=== PATIENT | female | born 1970 | race Hispanic/Latino ===

== ENCOUNTER 2017-05-13 09:05 | Emergency (ER) | payer MEDICARE ==
[2017-05-13 09:47] VITALS: BP 137/69
--- NOTE | 2017-05-13 12:09 | Emergency Department Report ---
ED Back Pain/Injury HPI - General Chief Complaint: Back Pain/Injury Stated Complaint: RIGHT SIDE BACK PAIN Time Seen by Provider: 05/13/17 11:57 Source: patient Limitations: No Limitations - History of Present Illness Initial Comments: Pt reports R flank/low back pain, no injury. Sx present x 3 days. States some mild intermittent dysuria, otherwise no symptoms. LMP today. Denies fevers, nausea, vomiting, abdominal pain. MD Complaint: back pain -: Gradual, days(s) (3) Similar Symptoms Previously: No Place: home Radiation: none Severity: mild Severity scale (0 -10): 2 Quality: aching Consistency: constant Improves With: none Worsens With: none Associated Symptoms: denies other symptoms - Related Data Previous Rx's Medication Instructions Recorded Last Taken Type Fluconazole [Diflucan] 150 mg PO PRN #2 tablet 05/13/17 Unknown Rx Ketorolac [Toradol] 10 mg PO Q8HR PRN #15 tablet 05/13/17 Unknown Rx Levofloxacin [Levaquin TAB] 500 mg PO QDAY #10 tablet 05/13/17 Unknown Rx Tamsulosin [Flomax] 0.4 mg PO QDAY #15 cap 05/13/17 Unknown Rx Allergies Allergy/AdvReac Type Severity Reaction Status Date / Time ampicillin Allergy Rash Verified 05/13/17 09:38 aspirin Allergy Rash Verified 05/13/17 09:38 cephalexin [From Keflex] Allergy Rash Verified 05/13/17 09:38 ciprofloxacin [From Cipro] Allergy Rash Verified 05/13/17 09:38 clindamycin [From Cleocin] Allergy Rash Verified 05/13/17 09:38 codeine Allergy Rash Verified 05/13/17 09:38 diflunisal [From Dolobid] Allergy Rash Verified 05/13/17 09:38 diphenhydramine Allergy Rash Verified 05/13/17 09:38 [From Benadryl] doxycycline Allergy Rash Verified 05/13/17 09:38 erythromycin base Allergy Rash Verified 05/13/17 09:38 [From Ilosone] ibuprofen [From Motrin] Allergy Rash Verified 05/13/17 09:38 metronidazole Allergy Rash Verified 05/13/17 09:38 Sulfa (Sulfonamide Allergy Rash Verified 05/13/17 09:38 Antibiotics) EES 400 Allergy Unknown Uncoded 05/13/17 09:38 rondomycin Allergy Rash Uncoded 05/13/17 09:38 Tuss ornade Allergy Rash Uncoded 05/13/17 09:38 ED Review of Systems ROS: Stated complaint: RIGHT SIDE BACK PAIN Other details as noted in HPI Comment: All other systems reviewed and negative Constitutional: denies: chills, fever Eyes: denies: eye pain, eye discharge, vision change ENT: denies: ear pain, throat pain Respiratory: denies: cough, shortness of breath, wheezing Cardiovascular: denies: chest pain, palpitations Endocrine: no symptoms reported Gastrointestinal: denies: abdominal pain, nausea, diarrhea Genitourinary: dysuria. denies: urgency, discharge Musculoskeletal: denies: back pain, joint swelling, arthralgia Skin: denies: rash, lesions Neurological: denies: headache, weakness, paresthesias Psychiatric: denies: anxiety, depression Hematological/Lymphatic: denies: easy bleeding, easy bruising ED Past Medical Hx - Past Medical History Previous Medical History?: Yes Hx Diabetes: No Additional medical history: Morbid obesity, lymphedema, Molina leg pain, Back pain - Surgical History Past Surgical History?: Yes Additional Surgical History: OU cataract removal - Social History Smoking Status: Never Smoker Substance Use Type: Prescribed - Medications Home Medications: Home Medications Medication Instructions Recorded Confirmed Last Taken Type Fluconazole [Diflucan] 150 mg PO PRN #2 tablet 05/13/17 Unknown Rx Ketorolac [Toradol] 10 mg PO Q8HR PRN #15 tablet 05/13/17 Unknown Rx Levofloxacin [Levaquin TAB] 500 mg PO QDAY #10 tablet 05/13/17 Unknown Rx Tamsulosin [Flomax] 0.4 mg PO QDAY #15 cap 05/13/17 Unknown Rx ED Physical Exam - General Limitations: No Limitations General appearance: alert, in no apparent distress - Head Head exam: Present: atraumatic, normocephalic - Eye Eye exam: Present: normal appearance - ENT ENT exam: Present: mucous membranes moist - Neck Neck exam: Present: normal inspection - Respiratory Respiratory exam: Present: normal lung sounds bilaterally. Absent: respiratory distress - Cardiovascular Cardiovascular Exam: Present: regular rate, normal rhythm. Absent: systolic murmur, diastolic murmur, rubs, gallop - GI/Abdominal GI/Abdominal exam: Present: soft, normal bowel sounds. Absent: tenderness, guarding, rebound - Extremities Exam Extremities exam: Present: normal inspection - Back Exam Back exam: Present: normal inspection, full ROM. Absent: CVA tenderness (R), CVA tenderness (L) - Neurological Exam Neurological exam: Present: alert, oriented X3 - Psychiatric Psychiatric exam: Present: normal affect, normal mood - Skin Skin exam: Present: warm, dry, intact, normal color. Absent: rash ED Course Vital Signs 05/13/17 09:39 Temperature 97.9 F Pulse Rate 98 H Respiratory 18 Rate Blood Pressure 137/69 O2 Sat by Pulse 97 Oximetry - Reevaluation(s) Reevaluation #1: 05/13/17 14:32 Pt is in NAD and stable for d/c. ED Medical Decision Making - Lab Data Result diagrams: 05/13/17 12:44 05/13/17 12:44 - Radiology Data Radiology results: report reviewed proximal 4 mm stone R ureter - Medical Decision Making Pt with mild leukocytosis 12.0, UA showing few RBC and WBC, CT consistent with proximal ureteral stones. Will give Flomax, Toradol (no actual allergy to Motrin ), and Levaquin. Pt has extensive allergy list but states she can take Levaquin. Declines narcotic pain medication. I have discussed need for close follow up and have given s/sx that would warrant return to ER for further evaluation. VSS, afebrile. - Differential Diagnosis strain, stone, uti Critical care attestation.: If time is entered above; I have spent that time in minutes in the direct care of this critically ill patient, excluding procedure time. ED Disposition Clinical Impression: Right ureteral stone Disposition: DC-01 TO HOME OR SELFCARE Is pt being admited?: No Condition: Stable Instructions: Kidney Stones (ED), Renal Colic (ED) Prescriptions: Fluconazole [Diflucan] 150 mg PO PRN #2 tablet Ketorolac [Toradol] 10 mg PO Q8HR PRN #15 tablet PRN Reason: Pain Levofloxacin [Levaquin TAB] 500 mg PO QDAY #10 tablet Tamsulosin [Flomax] 0.4 mg PO QDAY #15 cap Referrals: NATALIYA VASQUEZ MD [Referring] - 3-5 Days PRIMARY CARE, [Primary Care Provider] - 2-3 Days
[2017-05-13 12:57] LABS: Bacteria,Urine 1+ /HPF (Negative); Bilirubin,Urine NEG (Negative); Blood,Urine MOD (Negative); Ketones,Urine NEG (Negative); Leukocyte Esterase,Urine SM (Negative); Mucus,Urine 2+ /HPF; Nitrite,Urine NEG (Negative); Protein,Urine <15 mg/dL mg/dL (Negative); Urobilinogen,Urine < 2.0 mg/dL (<2.0)
[2017-05-13 13:02] LABS: Basophils % (Auto) 0.6 % (0.0-1.8); Eosinophils % (Auto) 0.5 % (0.0-4.3); Hemoglobin 16.3 gm/dl (10.1-14.3)
[2017-05-13 13:23] LABS: Albumin 4.2 g/dL (3.9-5); Albumin/Globulin Ratio 1.2 %; Bilirubin,Total 0.4 mg/dL (0.1-1.2); Calcium 9.7 mg/dL (8.4-10.2); Potassium 4.9 mmol/L (3.6-5.0); Total Protein 7.6 g/dL (6.3-8.2)
[2017-05-13 13:32] LABS: Hematocrit 49.6 % (30.3-42.9); Mean Corpuscular HGB Conc 33 % (30-34); Mean Corpuscular Hemoglobin 32 pg (28-32); Mean Corpuscular Volume 95 fl (79-97); Platelet Count 345 K/mm3 (140-440); Red Blood Count 5.22 M/mm3 (3.65-5.03); Red Cell Distribution Width 15.6 % (13.2-15.2)
--- NOTE | 2017-05-13 14:13 | Cat Scan Report ---
FINAL REPORT EXAM: CT ABDOMEN PELVIS WO CON HISTORY: R flank pain and hematuria TECHNIQUE: CT abdomen and pelvis without contrast PRIORS: None. FINDINGS: There is some limitation in the exam secondary to artifact due to patient body habitus. No acute abnormality identified in the lung bases. No focal abnormality identified within the liver parenchyma. The spleen demonstrates normal size and attenuation. No pancreatic abnormalities seen. There is mild right hydronephrosis. Within the proximal right ureter there is a radiodense focus approximately 0.4 centimeters and there is an adjacent 0 4 centimeter calcification suspect partially obstructing proximal renal calculi. There is a 0.3 centimeter dense focus seen within the mid right kidney. Left kidney demonstrates no evidence for hydronephrosis or nephrolithiasis The adrenal glands are unremarkable. Abdominal aorta is normal in caliber. No pathologically enlarged lymph nodes are identified. No signs of free fluid or free air No evidence of small bowel dilatation. No evidence of colonic dilatation. No pericolonic inflammatory change seen. IMPRESSION: There is mild right hydronephrosis. Two small adjacent 0.4 centimeter renal calculi and the proximal right ureter just distal to the ureterovesical junction which are likely partially obstructing Additional nonobstructing small right renal calculus Some limitation in the exam secondary to artifact as noted above.
[2017-05-13] MEDS ORDERED: TORADOL IM ONE (14:28)
== END 2017-05-13 15:37 | disposition home or self-care (01) ==
LOC: ED 09:05
DX: N20.1 Calculus of ureter (principal); Z88.6 Allergy status to analgesic agent; Z88.1 Allergy status to other antibiotic agents; Z88.2 Allergy status to sulfonamides; Z88.8 Allergy status to other drugs, medicaments and biological substances
CPT/HCPCS: 36415; 74176; 80053; 81001; 81025; 85025; 87086; 96372; 99284; J1885

== ENCOUNTER 2017-06-15 09:49 | Outpatient (CLI) | payer MEDICARE ==
--- NOTE | 2017-06-15 12:38 | Cat Scan Report ---
CT ABDOMEN PELVIS WITHOUT CONTRAST: HISTORY: abdominal pain. COMPARISON: 05/13/17. TECHNIQUE: Helical CT in 1.25mm intervals without IV contrast. Sagittal and coronal reconstructions. FINDINGS: Slightly limited exam secondary to body habitus. The anterior abdomen is poorly imaged. There is adequate visualization of the genitourinary system. There is mild anterior rotation of the right kidney. Otherwise, the kidneys are normal size and contour. The 4 mm proximal right ureteral stone has advanced to the distal right ureter near the level of S3. Right hydronephrosis has resolved. There is a punctate calcification at the inferior pole of the right kidney which is unchanged. The left kidney and collecting system are unremarkable. The bladder is collapsed. The liver, biliary system, pancreas, spleen, adrenal glands, aorta, bowel loops, uterus and bilateral adnexa are within normal limits. IMPRESSION: Right nephrolithiasis as described. The right ureteral stone has advanced from the proximal right ureter to the distal right ureter since 05/13/17. Hydronephrosis has resolved.
== END 2017-06-15 09:50 | disposition home or self-care (01) ==
LOC: CT 09:49
PROVIDERS: ATTEND Urology
DX: N20.2 Calculus of kidney with calculus of ureter (principal); N28.89 Other specified disorders of kidney and ureter
CPT/HCPCS: 74176

== ENCOUNTER 2017-08-01 09:57 | Outpatient (CLI) | payer MEDICARE ==
--- NOTE | 2017-08-01 15:16 | Cat Scan Report ---
CT abdomen and pelvis without contrast: Followup urinary calculus. Transverse images were obtained the lower chest to the ischium with coronal and sagittal reformatted images. The quality the study is somewhat limited by the patient's large size in the anterior abdomen is not included on several sections. In the prior exam of June 15, 2017. The lung images are unremarkable. The gallbladder is absent. The abdominal findings not otherwise remarkable. Images of the left kidney are generally unremarkable except for mild anterior rotation of the kidney. Sections through the right kidney demonstrates a small calculus in the lower pole. This not visualized on prior exam. Both ureters are decompressed. The distal right ureteral calculus identified on prior exam is no longer present in the ureter or urinary bladder. There is a large amount of mesenteric fat. The abdominal findings are otherwise unremarkable. Impressions: 1. New small right renal calculus. 2. Interval resolution of right ureteral calculus.
== END 2017-08-01 09:58 | disposition home or self-care (01) ==
LOC: CT 09:57
PROVIDERS: ATTEND Urology
DX: N20.0 Calculus of kidney (principal); Z90.49 Acquired absence of other specified parts of digestive tract
CPT/HCPCS: 74176